=== PATIENT | male | born 1980 | race Two or more races ===

== ENCOUNTER 2025-05-26 09:46 | Emergency (ER) | payer OTHER ==
[~2025-05-26] VITALS: Ht 188 cm; Wt 79.4 kg
[2025-05-26] MEDS ORDERED: KETOROLAC TROMETHAMINE 30 MG VIAL IM STA (10:18)
== END 2025-05-26 11:49 | disposition home or self-care (01) ==
LOC: ER 09:46
DX: R20.0 Anesthesia of skin (principal)

== ENCOUNTER 2025-07-07 15:44 | Emergency (ER) | payer OTHER ==
[~2025-07-07] VITALS: Ht 188 cm; Wt 81.6 kg
[2025-07-07 19:12] LABS: BASO % 0.6 % (0.1-1.2); EOS # 0.05 (0.04-0.54); EOS % 0.9 % (0.7-7.0); LYMPH # 1.50 (1.18-3.74); LYMPH % 28.4 % (19.3-53.1); MEAN PLATELET VOLUME 10.60 fl (9.4-12.4); MONO # 0.48 (0.24-0.82); MONO % 9.1 % (4.7-12.5); NEUT # 3.22 (1.56-6.13); NEUT % 60.8 % (34.0-71.1); RED CELL DISTRIBUTION WIDTH 12.4 % (11.6-14.4)
[2025-07-07 19:48] LABS: BASOPHIL MAN 1.0 %; EOSINOPHIL MAN 2.0 %; LYMPHOCYTE MAN 18.0 %; MONOCYTE MAN 10.0 %; NEUTROPHILS MAN 62.0 %
[2025-07-07] MEDS ORDERED: DICLOFENAC SODI50 MG PO (19:58)
[2025-07-07] MEDS ORDERED: PEPCID AC20 MG PO (19:58)
[2025-07-07] MEDS ORDERED: ZOVIRAX800 MG PO (19:58)
[2025-07-07] MEDS ORDERED: ZOVIRAX5 GM TOP (20:05)
[2025-07-07] MEDS ORDERED: CETIRIZINE HCL 5MG/5ML BLIST.PACK PO ONE (20:37)
== END 2025-07-07 22:37 | disposition home or self-care (01) ==
LOC: ER 15:44
PROVIDERS: General Practice
DX: B02.8 Zoster with other complications (principal)